=== PATIENT | male | born 1950 | race Caucasian/White ===

== ENCOUNTER 2019-05-31 23:53 | Inpatient (IN) | payer MEDICARE ==
[2019-06-01] MEDS ORDERED: Midazolam HCl 5 mg/ml Vial ONE ×3 (00:03→01:43)
[2019-06-01 00:26] LABS: #Eosinphils 0.1 thou/uL (0.0-0.7); #Lymphocytes 1.6 thou/uL (1.20-3.40); #Monocytes 0.5 thou/uL (0.11-0.59); #Neutrophils 15.1 thou/uL (1.40-6.50); %Basophils 0.2 % (0.0-1.0); %Eosinophils 0.3 % (0.0-10.0); %Lymphocytes 9.2 % (21.0-51.0); %Monocytes 2.9 % (0.0-10.0); %Neutrophils 87.4 % (42.0-75.0); Hemoglobin 14.5 g/dL (14.0-18.0); Mean Corpuscular HGB CONC 34.6 g/dL (32.0-36.0); Mean Corpuscular Hemoglobin 31.1 pg (27.0-31.0); Mean Corpuscular Volume 89.9 fL (78.0-98.0); Mean Platelet Volume 7.6 fL (7.4-10.4); Platelet Count 286 thou/uL (130-400); RBC Distribution Width 12.7 % (11.5-14.5); Red Blood Cell (RBC) Count 4.65 mill/uL (4.70-6.10); White Blood Cell (WBC) Count 17.3 thou/uL (4.8-10.8)
[2019-06-01 00:50] LABS: Acetaminophen Less than 6.0 mcg/mL (10.0-30.0); Alcohol Less than 10 mg/dL (Less than 10); Salicylate Less than 8.0 mg/dL (15.0-30.0)
[2019-06-01 01:13] LABS: Bacteria/HPF None Seen HPF (None Seen); Bilirubin Negative (Negative); Blood, Urine Negative (Negative); Clarity Clear (Clear); Glucose, Urine (Dipstick) Normal (Negative); Leukocyte Negative Leu/uL (Negative); Nitrite Negative (Negative); Protein, Urine (Dipstick) 30 mg/dL (Neg-Trace); RBC/HPF 0-3 HPF (0-3); Squamous Epithelial None Seen HPF (0-3); Urobilinogen Normal mg/dL (Less than 2); WBC/HPF 0-3 HPF (0-3)
[2019-06-01 01:24] LABS: Amphetamine Not Detected (NotDetected); Barbiturates Screen Not Detected (NotDetected); Benzodiazepine Screen Not Detected (NotDetected); Cocaine Metabolite Screen Not Detected (NotDetected); Medtox Control Line Valid? VALID (VALID); Medtox Reader # READER 4; Methadone Not Detected (NotDetected); Methamphetamine Not Detected (NotDetected); Opiate Screen Not Detected (NotDetected); Oxycodone Screen Not Detected (NotDetected); Phencyclidine (PCP) Not Detected (NotDetected); THC/Cannabinoid Screen Not Detected (NotDetected); Tricyclic Screen Not Detected (NotDetected)
[2019-06-01 01:56] LABS: Chloride 104 mmol/L (98-107); Potassium 4.7 mmol/L (3.5-5.1); Sodium 136 mmol/L (136-145)
[2019-06-01 01:57] LABS: Calcium 8.7 mg/dL (7.8-10.44)
[2019-06-01 01:58] LABS: Globulin 2.5 g/dL (2.4-3.5); Glucose 131 mg/dL (80-115); Protein, Total 6.5 g/dL (5.8-8.1)
[2019-06-01 01:59] LABS: Anion Gap 12 mmol/L (10-20); Bilirubin, Total 0.5 mg/dL (0.2-1.2); Carbon Dioxide 25 mmol/L (23-31)
[2019-06-01] MEDS ORDERED: Ketamine 50 MG/ML (10ML VIAL) ONE (01:59)
[2019-06-01 02:00] LABS: Alkaline Phosphatase 112 U/L (40-110)
[2019-06-01 02:01] LABS: Calc. Creatinine Clearance 0 mL/min (70-130); Estimated GFR-MDRD 63
[2019-06-01 02:02] LABS: BUN (Urea Nitrogen) 17 mg/dL (8.4-25.7)
[2019-06-01 02:03] LABS: ALT (SGPT) 33 U/L (8-55); AST (SGOT) 25 U/L (5-34)
[2019-06-01] MEDS ORDERED: Piperacillin/Tazobactam 4.5 GM VIAL ONE (02:11)
[2019-06-01 04:52] VITALS: BMI 40.2
[2019-06-01] MEDS: Dextrose 5 % And 0.9 % NaCl 1,000 ML IV SCH ×2 (05:02→17:23)
--- NOTE | 2019-06-01 05:28 | PDOC.HHP ---
Hospitalist HPI - History of Present Illness Altered Mental status History of Present Illness: 69 year old with history of Migraine headaches and TIA's was brought to the ER by his due to altered mental status. She noted that he began having a headache, and then started acting confused and not following commands. Once he was in the ER he became combative, and was given IV Ativan and Ketamine. He was noted to be febrile, and his WBC count was elevated. He is being admitted for altered mental status and sepsis. Currently he is resting peacefully, and when asked what is bothering him he says he feels "head-achy". Otherwise I am unable to obtain any additional history. His is not at bedside. He does not answer any other questions. 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, TIA Other Medical History: Unknown - Past Surgical History Other Surgical History: Un-Obtainable - Family History Other Family History: Unknown - Social History Living Situation: With Family Other Social History: Unknown - Exam General Appearance: NAD Eye: PERRL, anicteric sclera Heart: RRR, no murmur, no gallops, no rubs, normal peripheral pulses Respiratory: CTAB, no wheezes, no rales, no ronchi, normal chest expansion, no tachypnea, normal percussion Gastrointestinal: soft, non-tender, non-distended, normal bowel sounds, no palpable masses, no hepatomegaly, no splenomegaly Extremities: no cyanosis, no clubbing, no edema Skin: normal turgor, no lesions, no rashes Neurological: cranial nerve grossly intact (no nuchal rigidity), no focal deficits Musculoskeletal: normal tone, normal strength, no muscle wasting Psychiatric: normal affect, oriented to person (oriented to person only) Hospitalist Results - Labs Result Diagrams: 06/01/19 00:12 06/01/19 01:30 Lab results: WBC 17.3 thou/uL (4.8-10.8) H 06/01/19 00:12 Hgb 14.5 g/dL (14.0-18.0) 06/01/19 00:12 Hct 41.8 % (42.0-52.0) L 06/01/19 00:12 MCV 89.9 fL (78.0-98.0) 06/01/19 00:12 Plt Count 286 thou/uL (130-400) 06/01/19 00:12 Neutrophils % 87.4 % (42.0-75.0) H 06/01/19 00:12 Sodium 136 mmol/L (136-145) 06/01/19 01:30 Potassium 4.7 mmol/L (3.5-5.1) 06/01/19 01:30 Chloride 104 mmol/L (98-107) 06/01/19 01:30 Carbon Dioxide 25 mmol/L (23-31) 06/01/19 01:30 BUN 17 mg/dL (8.4-25.7) 06/01/19 01:30 Creatinine 1.15 mg/dL (0.7-1.3) 06/01/19 01:30 Glucose 131 mg/dL (80-115) H 06/01/19 01:30 Lactic Acid 1.7 mmol/L (0.5-2.2) 06/01/19 00:12 Calcium 8.7 mg/dL (7.8-10.44) 06/01/19 01:30 Total Bilirubin 0.5 mg/dL (0.2-1.2) 06/01/19 01:30 AST 25 U/L (5-34) 06/01/19 01:30 ALT 33 U/L (8-55) 06/01/19 01:30 Alkaline Phosphatase 112 U/L (40-110) H 06/01/19 01:30 Troponin I Less than 0.010 ng/mL (< 0.028) 06/01/19 00:12 B-Natriuretic Peptide Less than 10.0 pg/mL (0-100) 06/01/19 00:12 Serum Total Protein 6.5 g/dL (5.8-8.1) 06/01/19 01:30 Albumin 4.0 g/dL (3.4-4.8) 06/01/19 01:30 Urine Ketones Negative mg/dL (Negative) 06/01/19 00:55 Urine Blood Negative (Negative) 06/01/19 00:55 Urine Nitrite Negative (Negative) 06/01/19 00:55 Ur Leukocyte Esterase Negative Minh/uL (Negative) 06/01/19 00:55 Urine RBC 0-3 HPF (0-3) 06/01/19 00:55 Urine WBC 0-3 HPF (0-3) 06/01/19 00:55 Ur Squamous Epith Cells None Seen HPF (0-3) 06/01/19 00:55 Urine Bacteria None Seen HPF (None Seen) 06/01/19 00:55 Hospitalist H&P A/P - Problem (1) Altered mental status Code(s): R41.82 - ALTERED MENTAL STATUS, UNSPECIFIED Status: Acute (2) Sepsis Code(s): A41.9 - SEPSIS, UNSPECIFIED ORGANISM Status: Acute (3) Headache Code(s): R51 - HEADACHE Status: Acute - Plan Plan: * Altered mental status with fever, and elevated WBC count- will continue empiric antibiotics, and follow-up with culture results * Send for LP under fluroscopy- and MRI of the brain * Send for viral panel and influenza scree * Check Ammonia level * Screen for Auto-immune disease with RORO * Will need to try an obtain additional history from the to further guide therapy
[2019-06-01] MEDS ORDERED: Ondansetron ODT 4 MG TAB PO PRN (05:43)
[2019-06-01] MEDS ORDERED: Labetalol HCl 100 MG/20 ML VIAL SLOW IVP PRN (05:43)
[2019-06-01] MEDS ORDERED: HYDROcodone/Acetaminophen 5/325 mg Tablet PO PRN (05:43)
[2019-06-01] MEDS ORDERED: hydrALAZINE 20 MG/ML VIAL SLOW IVP PRN (05:43)
[2019-06-01] MEDS ORDERED: Lorazepam 2 MG/ML VIAL SLOW IVP PRN (05:47)
--- NOTE | 2019-06-01 07:34 | RAD ---
XR Chest 1 View Portable History: Sepsis Comparison: None. Findings: Smaller bilateral pleural effusions. Abnormal passes present throughout the lungs. No pneumothorax. C ardiac silhouette upper limits of normal. Impression: Patchy opacities throughout the lungs with small effusions, greater on the right. This ma y represent multifocal bronchopneumonia versus pulmonary edema, and a full inspiratory 2 views of the chest recommended for further evaluation.
--- NOTE | 2019-06-01 08:18 | CT ---
PRELIMINARY REPORT/[facility]/EMERGENCY AFTER HOURS PROCEDURE: EXAM: CT BRAIN WO CON HISTORY: M69 presents to ED by EMS from home for AMS. EMS initially called EMS for migraine. When ems arrived to scene, pt was altered, confused, unable to follow commands, and got progressivley worse. EMS reports pt becomes combative when he wakes up, saying things that dont make sense. EMS gave fluid , ketamine and versed en route, EMS reports versed worked best for pts combative behavior. Hx- TIA; en route to ED and additional medical hx will be obtained COMPARISON: None FINDINGS: No focal parenchymal hypodensity to suggest acute ischemia or edema. No intracranial hemorrhage. No extra-axial fluid collections. No hydrocephalus. Minimal mucosal thickening of the bilateral maxillary sinuses and sphenoid sinus. Contents of the orbits are symmetric across the midline. No calvarial fracture. IMPRESSION: No acute intracranial process. ELECTRONICALLY SIGNED BY: Carlos Alberto Young MD Jun 01, 2019 2:32:33 AM RADIOLOGY TEACHER This report is intended for review by the ordering physician only, in accordance of law. If you recei ve this report in error, please call [facility] at [phone]. FINAL REPORT HEAD CT WITHOUT CONTRAST: HISTORY: Sepsis. Altered mental status. FINDINGS: No parenchymal hemorrhage. No extra-axial hematoma. No midline shift. Basilar cisterns are patent. Br ain volume is age-appropriate. Cortical ferrell-white matter differentiation preserved. Minimal mucosal thickening of paranasal sinuses. Intact calvarium. IMPRESSION: No acute intracranial process. This report is in agreement with the initial report by [facility]. POS: [facility]
[2019-06-01] MEDS ORDERED: FLU VACC TS2019-20(65YR UP)/PF 180 MCG/0.5 ML SYRINGE IM ONE (09:00)
[2019-06-01] MEDS ORDERED: Prevnar 13-Val Conj/PF 0.5 ML SYRINGE IM ONE (09:00)
--- NOTE | 2019-06-01 09:47 | CON ---
DATE OF CONSULTATION: HISTORY OF PRESENT ILLNESS: Foster Montelongo is a 69-year-old gentleman from [place] he normally sees doctors out of [place], which is [facility]. According to his , he became somewhat confused. He had a slurred speech, though he was pretty appropriate, slightly confused. Denied any headache or dizziness. CT head in the ER was normal. Chest x-ray was normal. He is a nonsmoker, nondrinker. He normally goes to the [facility] for routine care. Over the last 24 hours, his condition has improved, he is back to his baseline as per his . He has previous history of TIA. PAST MEDICAL HISTORY: TIA, asthma, high cholesterol. HOME MEDICATIONS: Include; 1. Losartan 25. 2. Plavix 75. 3. Singulair 10. 4. No inhalers. SOCIAL HISTORY: Unremarkable. ALLERGIES: NONE. REVIEW OF SYSTEMS: Ten point negative. PHYSICAL EXAMINATION: VITAL SIGNS: Temperature 98, saturations 96%, blood pressure 125/86, respirations 18. CHEST: No wheezing or crackles. CARDIAC: Normal S1 and S2. No gallops. ABDOMEN: No masses. IMPRESSION: 1. Encephalopathy, metabolic. Etiology unclear. 2. Sleep apnea, noncompliant. 3. Asthma. 4. High cholesterol, previous TIA, previous surgery for what sounds like an ASD repair. PLAN: Continue aggressive PT, supportive care. Continue baseline home medications. He is strongly encouraged to wear a CPAP. is at the bedside, I discussed with her at length. This is a consultation note, 50% direct patient care, 70 minutes. Job ID: [id number]
[2019-06-01] MEDS: Enoxaparin Sodium 40 MG/0.4 ML SYRINGE SC SCH (09:57)
[2019-06-01] MEDS: Famotidine 20 MG TAB PO SCH ×2 (10:00→19:35)
--- NOTE | 2019-06-01 10:59 | MRI ---
Exam: Brain MRI without contrast HISTORY: Altered mental status COMPARISON: None FINDINGS: Limited evaluation due to motion degradation on multiple series Calvarial marrow signal intensity: Appropriate T1 signal Gradient echo sequence: No hemorrhage Brain parenchyma: No mass, mass effect or midline shift. Brain volume, age-appropriate. Cortical ferrell-white matter differentiation: Preserved Restricted diffusion: Central arterial flow voids are maintained. Absent restricted diffusion White matter signal intensities: T2, FLAIR white matter hyperintensities due to chronic small vessel ischemic changes Sinuses: Mild mucosal thickening in the visualized paranasal sinuses. IMPRESSION: Absent restricted diffusion. No acute infarct.
[2019-06-01 14:21] LABS: Ref Lab Test Ordered RVP; Reference Lab Name LABCORP
[2019-06-01] MEDS: Acetaminophen 325 MG TAB PO PRN (19:35)
[2019-06-02] MEDS: Acetaminophen 325 MG TAB PO PRN (01:04)
[2019-06-02 03:52] LABS: #Eosinphils 0.3 thou/uL (0.0-0.7); #Lymphocytes 2.8 thou/uL (1.20-3.40); #Monocytes 0.8 thou/uL (0.11-0.59); #Neutrophils 5.7 thou/uL (1.40-6.50); %Basophils 0.5 % (0.0-1.0); %Eosinophils 3.2 % (0.0-10.0); %Lymphocytes 28.9 % (21.0-51.0); %Neutrophils 59.4 % (42.0-75.0); Hemoglobin 13.4 g/dL (14.0-18.0); Mean Corpuscular HGB CONC 33.8 g/dL (32.0-36.0); Mean Corpuscular Volume 88.9 fL (78.0-98.0); Mean Platelet Volume 7.2 fL (7.4-10.4); Platelet Count 252 thou/uL (130-400); RBC Distribution Width 12.4 % (11.5-14.5); Red Blood Cell (RBC) Count 4.45 mill/uL (4.70-6.10); White Blood Cell (WBC) Count 9.6 thou/uL (4.8-10.8)
[2019-06-02 04:10] LABS: Anion Gap 12 mmol/L (10-20); BUN (Urea Nitrogen) 14 mg/dL (8.4-25.7); Calc. Creatinine Clearance 102 mL/min (70-130); Carbon Dioxide 27 mmol/L (23-31); Chloride 106 mmol/L (98-107); Estimated GFR-MDRD 64; Glucose 103 mg/dL (80-115); Potassium 3.8 mmol/L (3.5-5.1); Sodium 141 mmol/L (136-145)
[2019-06-02] MEDS: Enoxaparin Sodium 40 MG/0.4 ML SYRINGE SC SCH (07:59)
[2019-06-02] MEDS: Famotidine 20 MG TAB PO SCH ×2 (07:59→20:59)
--- NOTE | 2019-06-02 10:22 | PDOC.HOSPP ---
- Subjective Encounter Date: 06/02/19 Encounter Time: 12:10 Subjective: Patient denies headache to me this AM. Reported one to nursing earlier today, took a norco. Since then has been nauseated and vomited a couple times. No more confusion. No fever. No other complaints at this time. - Objective Vital Signs & Weight: Vital Signs (12 hours) Temp Pulse BP Pulse Ox 06/02/19 08:00 97 06/02/19 07:00 97.8 F 06/02/19 06:59 80 188/96 H 06/02/19 03:25 97.1 F L 06/01/19 23:10 98.1 F Weight Admit Weight 256 lb 14.4 oz Weight 256 lb 14.4 oz Most Recent Monitor Data Heart Rate from ECG 70 NIBP 156/88 NIBP BP-Mean 110 Respiration from ECG 17 SpO2 98 I&O: 06/01/19 06/02/19 06/03/19 06:59 06:59 06:59 Intake Total 230 370 Output Total 450 600 Balance -220 -230 Result Diagrams: 06/02/19 03:24 06/02/19 03:24 Hospitalist ROS - Review of Systems Constitutional: denies: fever, chills Respiratory: denies: cough, shortness of breath Cardiovascular: denies: chest pain, palpitations, orthopnea Gastrointestinal: reports: nausea, vomiting. denies: abdominal pain, diarrhea, constipation Musculoskeletal: denies: neck pain Neurological: denies: weakness, numbness, incoordination, change in speech, confusion - Medication Medications: Active Medications Generic Name Dose Route Start Last Admin Trade Name Ishaanq PRN Reason Stop Dose Admin Acetaminophen 650 mg 06/01/19 05:43 06/02/19 01:04 Tylenol PO 650 mg Q4H PRN Administration Headache/Fever/Mild Pain (1-3) Hydrocodone Bitart/Acetaminophen 1 tab 06/01/19 05:43 06/02/19 08:01 Bronson 5/325 PO 1 tab Q4H PRN Administration Moderate Pain (4-6) Enoxaparin Sodium 40 mg 06/01/19 09:00 06/02/19 07:59 Lovenox SC 40 mg 0900 SHANE Administration Famotidine 20 mg 06/01/19 09:00 06/02/19 07:59 Pepcid PO 20 mg BID SHANE Administration Labetalol HCl 20 mg 06/01/19 05:43 06/02/19 06:59 Normodyne SLOW IVP 20 mg Q4H PRN Administration SBP > 180 and HR >/= 70 - Exam General Appearance: NAD, awake alert Eye: anicteric sclera ENT: moist mucosa Heart: RRR, no murmur, no gallops, no rubs Respiratory: CTAB, no wheezes, no rales, no ronchi Gastrointestinal: soft, non-tender, non-distended, normal bowel sounds Extremities: no edema Neurological: cranial nerve grossly intact, normal sensation to touch, no weakness, no focal deficits Psychiatric: normal affect, normal behavior, A&O x 3 Hosp A/P (1) Altered mental status Code(s): R41.82 - ALTERED MENTAL STATUS, UNSPECIFIED Status: Resolved (2) Headache Code(s): R51 - HEADACHE Status: Resolved (3) Sepsis Code(s): A41.9 - SEPSIS, UNSPECIFIED ORGANISM Status: Resolved - Plan Leukocytosis resolved, temp never over 100.3, not elevated since then. Uncertain source of AMS, possibly migraine? Patient back to baseline ever since. No evidence infection at this point. Ambulating well. No BEATTY now. If returns may need LP. Blood culture 1/2 gram + rods, likely contaminant but will need to followup on results MRI negative for acute process. Move to medical bed, observe one more night.
--- NOTE | 2019-06-02 11:30 | PRG ---
DATE OF SERVICE: 06/02/2019 SUBJECTIVE: This morning, he is back to his baseline, no longer encephalopathic. OBJECTIVE: VITAL SIGNS: He is afebrile. Blood pressure was elevated at 199/89, pulse 69, and respirations of 14. CHEST: Decreased breath sounds. No wheezing. CARDIAC: Normal S1 and S2. No gallops. ABDOMEN: No masses. LABORATORY DATA: His blood cultures growing a gram positive latoya on the likely contamination. He had an MRI done of the brain, which showed no acute changes. IMPRESSION: 1. Metabolic encephalopathy. 2. Hypertension. PLAN: I will restart his home medication for blood pressure, otherwise disposition home as per primary care physician. Job ID: [id number]
[2019-06-02] MEDS: Ondansetron PF 4 MG/2 ML Vial IVP PRN ×2 (11:54→17:38)
[2019-06-02] MEDS ORDERED: Losartan 25 MG TAB PO SCH (12:00)
[2019-06-02] MEDS ORDERED: Atorvastatin Calcium 10 MG TAB PO SCH (21:00)
[2019-06-02] MEDS ORDERED: Loratadine 10 MG TAB PO SCH (21:00)
[2019-06-02] MEDS ORDERED: Montelukast Sodium 10 mg Tablet PO SCH (21:00)
[2019-06-03] MEDS ORDERED: Aspirin 81 mg Enteric Coated Tablet PO SCH (09:00)
[2019-06-03] MEDS ORDERED: Losartan 25 MG TAB PO SCH (09:00)
[2019-06-03] MEDS ORDERED: Clopidogrel Bisulfate 75 MG TAB PO SCH (09:00)
[2019-06-03] MEDS ORDERED: Metoprolol Tartrate 50 MG TAB PO SCH (09:00)
[2019-06-03] MEDS: Famotidine 20 MG TAB PO SCH (09:47)
[2019-06-03] MEDS: Acetaminophen 325 MG TAB PO PRN (09:52)
[2019-06-03] MEDS: Enoxaparin Sodium 40 MG/0.4 ML SYRINGE SC SCH (09:53)
--- NOTE | 2019-06-03 10:00 | PDOC.HOSPP ---
- Subjective Encounter Date: 06/03/19 Encounter Time: 11:00 Subjective: Patient without any complaints today. No BEATTY though head still feels a little heavy. Walking and eating well. No N/V. - Objective Vital Signs & Weight: Vital Signs (12 hours) Temp Pulse Resp BP Pulse Ox 06/03/19 07:57 98.1 F 99 16 159/91 H 97 06/03/19 04:55 98.0 F 85 18 153/77 H 94 L 06/03/19 00:00 98.1 F 90 18 128/72 92 L 06/02/19 22:48 97 Weight Admit Weight 256 lb 14.4 oz Weight 256 lb 14.4 oz Most Recent Monitor Data Heart Rate from ECG 87 NIBP 180/83 NIBP BP-Mean 123 Respiration from ECG 13 SpO2 98 I&O: 06/02/19 06/03/19 06/04/19 06:59 06:59 06:59 Intake Total 370 Output Total 600 Balance -230 Result Diagrams: 06/02/19 03:24 06/02/19 03:24 Hospitalist ROS - Review of Systems Constitutional: denies: fever, chills Respiratory: denies: cough, shortness of breath Cardiovascular: denies: chest pain, palpitations, orthopnea Gastrointestinal: denies: nausea, vomiting, abdominal pain Neurological: denies: weakness, numbness, incoordination, change in speech, confusion, seizures - Medication Medications: Active Medications Generic Name Dose Route Start Last Admin Trade Name Freq PRN Reason Stop Dose Admin Acetaminophen 650 mg 06/01/19 05:43 06/03/19 09:52 Tylenol PO 650 mg Q4H PRN Administration Headache/Fever/Mild Pain (1-3) Hydrocodone Bitart/Acetaminophen 1 tab 06/01/19 05:43 06/02/19 08:01 Almond 5/325 PO 1 tab Q4H PRN Administration Moderate Pain (4-6) Aspirin 81 mg 06/03/19 09:00 06/03/19 09:47 Ecotrin PO 81 mg DAILY SHANE Administration Atorvastatin Calcium 10 mg 06/02/19 21:00 06/02/19 20:58 Lipitor PO 10 mg QPM SHANE Administration Clopidogrel Bisulfate 75 mg 06/03/19 09:00 06/03/19 09:47 Plavix PO 75 mg DAILY SHANE Administration Enoxaparin Sodium 40 mg 06/01/19 09:00 06/03/19 09:53 Lovenox SC 40 mg 0900 SHANE Administration Famotidine 20 mg 06/01/19 09:00 06/03/19 09:47 Pepcid PO 20 mg BID SHANE Administration Hydralazine HCl 10 mg 06/01/19 05:43 06/02/19 11:50 Apresoline SLOW IVP 10 mg Q4H PRN Administration SBP > 180 and HR < 70 Labetalol HCl 20 mg 06/01/19 05:43 06/02/19 06:59 Normodyne SLOW IVP 20 mg Q4H PRN Administration SBP > 180 and HR >/= 70 Loratadine 10 mg 06/02/19 21:00 06/02/19 20:59 Claritin PO 10 mg QPM SHANE Administration Lorazepam 2 mg 06/01/19 05:47 06/02/19 17:45 Ativan SLOW IVP 2 mg Q6H PRN Administration Anxiety/Agitation Losartan Potassium 25 mg 06/03/19 09:00 06/03/19 09:48 Cozaar PO 25 mg DAILY SHANE Administration Metoprolol Tartrate 50 mg 06/03/19 09:00 06/03/19 09:48 Lopressor PO 50 mg DAILY SHANE Administration Montelukast Sodium 10 mg 06/02/19 21:00 06/02/19 20:59 Singulair PO 10 mg QPM SHANE Administration Ondansetron HCl 4 mg 06/01/19 05:43 06/02/19 11:28 Zofran Odt PO 4 mg Q6H PRN Administration Nausea/Vomiting Ondansetron HCl 4 mg 06/01/19 05:43 06/02/19 17:38 Zofran IVP 4 mg Q6H PRN Administration Nausea/Vomiting Venlafaxine HCl 75 mg 06/02/19 21:00 06/02/19 20:59 Effexor PO 75 mg HS SHANE Administration - Exam General Appearance: NAD, awake alert Eye: anicteric sclera ENT: moist mucosa Heart: RRR, no murmur, no gallops, no rubs Respiratory: CTAB, no wheezes, no rales, no ronchi Gastrointestinal: soft, non-tender, non-distended, normal bowel sounds Psychiatric: normal affect, normal behavior, A&O x 3 Hosp A/P (1) Altered mental status Code(s): R41.82 - ALTERED MENTAL STATUS, UNSPECIFIED Status: Resolved (2) Headache Code(s): R51 - HEADACHE Status: Resolved (3) Sepsis Code(s): A41.9 - SEPSIS, UNSPECIFIED ORGANISM Status: Resolved - Plan Leukocytosis resolved, temp never over 100.3, not elevated since then. Uncertain source of AMS, possibly migraine? Patient back to baseline ever since. No evidence infection. Ambulating well. No BEATTY now. Blood culture 1/2 gram + rods appears to be contaminant MRI negative for acute process. Will d/c home. Can f/u with neurology about this episode outpatient.
[2019-06-03 11:52] VITALS: TEMP 97.9
[2019-06-03 15:37] LABS: ANA Symphony (Qualitative) Negative (Negative); ANA Symphony (Quantitative) 0.3 Ratio (< 0.7 Negative)
[2019-06-03 16:54] VITALS: BP 148/84
--- NOTE | 2019-06-04 15:24 | DIS ---
DATE OF ADMISSION: 06/01/2019 DATE OF DISCHARGE: 06/03/2019 PRIMARY CARE PHYSICIAN: Steve Gu. REASON FOR ADMISSION: Altered mental status. DIAGNOSES AT DISCHARGE: 1. Altered mental status, resolved. 2. Headache, resolved. 3. Systemic inflammatory response syndrome, resolved. 4. History of migraines. 5. History of transient ischemic attack. 6. Hypertension. 7. Hyperlipidemia. PROCEDURES: 1. CT of the brain without contrast showing no acute intracranial process. 2. MRI of the brain without contrast showing no acute infarction or other abnormalities. CONSULTATIONS: Critical Care, Angel Coronado MD SUMMARY OF HOSPITAL COURSE: This is a 69-year-old white male with a history of migraine headaches and previous TIAs, brought to the ER by his due to altered mental status. He has been reporting feeling a little headachy and he is slightly confused and not following commands. When he was in the ER, he became combative and had to be given IV Ativan and ketamine. He was noted to have a temperature of 100.3, but it never went higher than that and had an elevated white blood cell count. So, he was admitted for possible sepsis. He calmed down quickly, once he got into the hospital and he returned to normal mental status, said he felt little headachy, but otherwise was feeling fine. He had an MRI of the brain done, which was normal as above. His white blood cell count resolved spontaneously and so he was never had to be given any antibiotics. He had no further elevated temperatures or confusion. The patient did try [place] for his feeling of having the heaviness as he described in his head. This made him feel very nauseated. He did vomit several times on the day before discharge. However, the next day, he was able to eat breakfast, was not having any nausea, no more headache and not had any fever and so, he is being discharged home. Of note, one out of two blood cultures did grow positive for gram-positive rods, which is thought to be a contaminant and his urine culture was negative. His flu test was negative. DISCHARGE MANAGEMENT: Discharged home. FOLLOWUP: Follow up with primary care physician in 1 to 2 weeks and get a call for followup appointment with Dr. Pizarro with Neurology to further look into this confusion episode. ACTIVITY: As tolerated. DIET: Regular diet. MEDICATIONS: Continue all home medications. 1. Aspirin 81 mg daily. 2. Atorvastatin 10 mg daily. 3. Zyrtec 10 mg daily. 4. Clopidogrel 75 mg daily. 5. Losartan 25 mg daily. 6. Toprol 50 mg daily. 7. Singulair 10 mg daily. 8. Venlafaxine 75 mg daily. 9. Gabapentin 200 mg at night. Job ID: [id number]
== END 2019-06-03 17:27 | disposition home or self-care (01) | DRG 871 ==
LOC: ERS 23:53 → IMCU/EMU 06-01 02:55 → T4-B 06-02 19:50 → ONC 06-02 19:58 → T4-B 06-02 20:30
PROVIDERS: ADMIT Internal Medicine; ATTEND Internal Medicine
DX: A41.9 Sepsis, unspecified organism (principal); R40.2342 Coma scale, best motor response, flexion withdrawal, at arrival to emergency department; R40.2122 Coma scale, eyes open, to pain, at arrival to emergency department; R40.2222 Coma scale, best verbal response, incomprehensible words, at arrival to emergency department; G93.41 Metabolic encephalopathy; G43.909 Migraine, unspecified, not intractable, without status migrainosus; G47.30 Sleep apnea, unspecified; J45.909 Unspecified asthma, uncomplicated; I10 Essential (primary) hypertension; Z86.73 Personal history of transient ischemic attack (TIA), and cerebral infarction without residual deficits
CPT/HCPCS: 36415; 51701; 70450; 70551; 71045; 80048; 80053; 80306; 80307; 81003; 81015; 82140; 83605; 83880; 84484; 85025; 85652; 86038; 86225; 87040; 87086; 87804; 93005; 96365; 96368; 96375; 96376; 99292; J0360; J1650; J2060; J2250; J2405; J2543; J3370; Q0162